=== PATIENT | female | born 1970 | race Caucasian/White ===

== ENCOUNTER → 2019-07-17 | Outpatient (CLI) | payer OTHER ==
[~2019-07-17] MED LIST: IBUP-1060 PO
--- NOTE | 2019-07-17 15:02 | PAIN ---
DATE OF SERVICE: 07/17/2019 INITIAL CONSULTATION FOR PAIN CLINIC CHIEF COMPLAINT: Low back and left lower extremity pain. HISTORY OF PRESENT ILLNESS: This is a 48-year-old female who presents with history of pain in the low back for about 3 months now, not a result of any specific injury or action that she is aware of. She was just exercising, doing some stretching and she bent over to pick something up in early March of this year, had significant pain in the low back, radiating to posterior gluteus, lateral thigh, lateral anterior thigh, anterior medial thigh, into the lateral knee and medial lower leg and anterior lower leg to the ankle. The patient reports it is a bit worse with standing or walking; sitting at work increases the pain. The patient works as a dental hygienist and is always turning to her right side and putting weight on her left side. Even with sitting, the pain is becoming significant and radiating into the lower extremity in a radicular fashion. The patient reports it is a constant, sharp, stabbing, throbbing, shooting with tingling pain; changes during the day with activity, radiating down the left leg as noted. The patient has had physical therapy as well as trigger point injections, also doing chiropractic treatment and currently doing home exercises and exercises at her gym, all with only minimal decrease in pain. The patient has tried gabapentin, tramadol, hydrocodone as well as the ibuprofen. The ibuprofen and hydrocodone do decrease the pain, but only by about 20%. Tramadol and gabapentin were not helpful. The patient reports it awakens her from her sleep at least twice at night. It can affect her bowel or bladder control, but no loss of continence and it does affect her ability to walk with easy fatigability in the left leg. The patient did have MRI scan of the lumbar spine, showing at the L4-L5 level significant left extraforaminal disk protrusion with left neural foraminal mass effect on the exiting left L4 nerve root. PAST MEDICAL HISTORY: Significant for only a previous laparoscopic cholecystectomy; otherwise, the patient has been in good health. CURRENT MEDICATIONS: Include ibuprofen only. ALLERGIES: THE PATIENT IS ALLERGIC TO PENICILLIN. FAMILY HISTORY: Significant for no known medical conditions or diseases as the patient was adopted. SOCIAL HISTORY: The patient drinks about 2-3 alcoholic drinks a week, does not smoke and does not use any illegal, illicit or recreational drugs. Single, lives locally in [place], [place] and works as a dental hygienist. REVIEW OF SYSTEMS: The patient's review of systems is positive for those items mentioned in the history of present illness. All systems reviewed and otherwise negative. It is complete, full and well documented on the patient's chart. PHYSICAL EXAMINATION: VITAL SIGNS: The patient's blood pressure is 142/66, pulse 71, respirations 18 and temperature is 98.5 degrees Fahrenheit. Height is 5 feet 9 inches, weight is 152 pounds. GENERAL: The patient is awake, alert, oriented, appropriate, very pleasant demeanor. HEENT: Exam shows normocephalic, atraumatic. Extraocular movements are intact and symmetrical. Oral cavity, mucous membranes are moist and pink. Dentition is intact. NECK: Shows anterior throat supple, without palpable lymphadenopathy noted. Swallow reflex is symmetrical. CHEST: Shows normal on inspection. Breath sounds are clear to auscultation bilaterally. HEART: Shows S1, S2 clear. No murmurs auscultated. ABDOMEN: Soft, nontender and nondistended. No palpable organomegaly is noted. No rebound or guarding demonstrated. BACK: Shows spine grossly in the midline. Normal-appearing thoracic kyphosis and lumbar lordotic curvature. Lumbar paraspinous muscle shows symmetrical on inspection. With palpation, it shows some moderate tenderness diffusely, but only diffusely without radiation. The patient has good rotational motion of the lumbar spine, both laterally as well as with extension and flexion, without significant difficulty. EXTREMITIES: The patient's lower extremities show deep tendon reflexes at 2+ in the patellar, 1+ tendo-calcaneus tendons are equal. Motor exam is strong, with 5/5 dorsiflexion, extension, quadriceps and hamstring flexion. Peripheral pulses are 1+ posterior tibia. No peripheral edema is noted. Lower extremities are warm and dry to touch, equal in color and appearance. Straight leg raise noted to be mildly positive on the left at about 40 degrees, but is decreased with knee flexion; right side is negative. Gaenslen's and Zack's maneuvers negative bilaterally as well. The patient is able to stand, stand on her toes without significant difficulty or loss of balance, is walking with a normal-appearing gait for a short distance in the office today, but not using any assistive devices such as canes or walkers to ambulate. SKIN: Shows warm and dry, good turgor. No edema. No sores, rashes or bruising throughout. IMPRESSION: 1. This is a 48-year-old female with approximately 3-month history of increasing pain in the low back and left lower extremity in a radicular fashion following L4-L5 dermatomal distribution. 2. MRI scan of the lumbar spine as noted. PLAN: Options were discussed with the patient including conservative medical managements, physical therapies and interventional techniques. She would like to pursue interventional techniques as she has done physical therapy. She is still doing exercises on her own, still with significant clinical radiculopathy in the left L4-L5 dermatomal distribution. We discussed the lumbar epidural steroid injection using description as well as anatomical models to describe the procedure. The patient will await for preauthorization with the insurance provider and will plan on return for lumbar epidural steroid injection at L4-L5 level at that time. JESSI HERNANDEZ MD DR: JAZMIN/trinidad JOB#: [id number] / [id number] TIMI Vasquez MD
== END | disposition home or self-care (01) ==
LOC: PNCL 08:25
PROVIDERS: ATTEND Anesthesiology
DX: M54.40 Lumbago with sciatica, unspecified side (principal); M79.605 Pain in left leg; Z88.0 Allergy status to penicillin; Z90.49 Acquired absence of other specified parts of digestive tract
CPT/HCPCS: G0463

== ENCOUNTER → 2019-07-31 | Outpatient (CLI) | payer OTHER ==
[~2019-07-31] MED LIST changes: +IOHEXOL 180 MG/ML 10 ML VIAL. ONE; +methylPREDNISolone ACETATE 40 MG/ML VIAL. ONE; +methylPREDNISolone ACETATE 80 MG/ML VIAL. ONE
--- NOTE | 2019-07-31 11:55 | PAIN ---
DATE OF SERVICE: 07/31/2019 PROGRESS NOTE FOR PAIN CLINIC DIAGNOSES: Lumbar radiculopathy with lumbar degenerative disk disease and lumbar herniated disk. HISTORY OF PRESENT ILLNESS: The patient, a 48-year-old female, returns status post evaluation and preauthorization for lumbar epidural steroid injection. The patient reports still significant pain in the low back, left lower extremity as it was previously, posterior lateral thigh, lateral anterior thigh, anterior medial thigh and medial lower leg into the ankle. The patient reports it is 9 on a scale of 10 at its worst over the past week, 7-8 on average, 3 at its least and is a 7 today. The patient reports it is aching, sharp, dull, tight, shooting, radiating, tingling, on and off in intensity, awakens her from sleep at night. The patient has obtained preauthorization with her insurance provider and would like to proceed with an epidural steroid injection today. The patient reports no new motor or sensory deficits, no new bowel or bladder incontinence or other complaints. PHYSICAL EXAMINATION: VITAL SIGNS: The patient's blood pressure is 134/94, pulse 83, temperature 98.6 degrees Fahrenheit, respirations 18, height is 5 feet 9 inches, weight is 159 pounds. GENERAL: The patient is awake, alert, oriented, appropriate, very pleasant demeanor. HEENT: Shows normocephalic, atraumatic. Extraocular movements are intact and symmetrical. Oral cavity: Mucous membranes are moist and pink. Dentition is intact. NECK: Shows anterior throat supple without palpable lymphadenopathy noted. Swallow reflex symmetrical. CHEST: Shows normal on inspection. Breath sounds clear to auscultation bilaterally. HEART: Shows S1, S2 clear. No murmurs auscultated. ABDOMEN: Soft, nontender, nondistended. No palpable organomegaly is noted. No rebound or guarding demonstrated. BACK: Shows spine grossly in the midline. Normal-appearing thoracic kyphosis and lumbar lordotic curvature. Lumbar paraspinous muscle shows symmetrical on inspection. With palpation, some moderate tenderness diffusely bilaterally, but only diffusely without specific radiation. EXTREMITIES: Lower extremities show deep tendon reflexes at 2+ in the patellar and 1+ tendo-calcaneus tendons. Motor exam is strong with 5/5 dorsiflexion, extension, quadriceps and hamstring flexion and symmetrical. Peripheral pulses are 1+ posterior tibia. No peripheral edema is noted. Options were discussed with the patient. The patient's old chart was reviewed as her current medication regimen updated. Current review of systems updated today as well. We will proceed with lumbar epidural steroid injection today with fluoroscopic guidance. Risks were again discussed, including but not limited to bleeding, infection, possibility of epidural hematoma, subsequent neurological compromise, dural puncture, headaches, spinal cord and/or nerve damage, side effects of steroid medication and poor results regarding pain control. The patient understands and wished to proceed. The patient will return to the clinic in approximately 2 weeks for followup. She was counseled on return appointment, activity level and side effects to be aware of. DIAGNOSES: Lumbar radiculopathy with lumbar degenerative disk disease with lumbar herniated disk. PROCEDURE: Lumbar epidural steroid injection, translaminar approach, L4-L5 level using C-arm fluoroscopic guidance under sterile prep and drape using local anesthetic. MEDICATION INJECTED: A total of 120 mg Depo-Medrol plus 10 mL of preservative-free normal saline and 2 mL of contrast. CONDITION AT DISCHARGE: Stable. The patient tolerated procedure well, had no complications. JESSI HERNANDEZ MD DR: JAZMIN/trinidad JOB#: [id number] / [id number]
== END ==
LOC: PNCL 08:10
PROVIDERS: ATTEND Anesthesiology
DX: M51.16 Intervertebral disc disorders with radiculopathy, lumbar region (principal)
CPT/HCPCS: 62323; J1030; J1040; Q9965

== ENCOUNTER → 2019-08-14 | Outpatient (CLI) | payer OTHER ==
[~2019-08-14] MED LIST changes: -IOHEXOL 180 MG/ML 10 ML VIAL. ONE; -methylPREDNISolone ACETATE 40 MG/ML VIAL. ONE; -methylPREDNISolone ACETATE 80 MG/ML VIAL. ONE
--- NOTE | 2019-08-14 09:13 | PAIN ---
DATE OF SERVICE: 08/14/2019 PROGRESS NOTE FOR PAIN CLINIC DIAGNOSES: Lumbar radiculopathy with lumbar degenerative disk disease and lumbar herniated disk. HISTORY OF PRESENT ILLNESS: The patient is a 48-year-old female who returns for followup status post lumbar epidural steroid injection x 1. The patient reports about 75% improvement initially for the first week, then started tapered off to about 50% overall improvement and still working. The patient reports she is still having some significant reduction in pain, but still the pain is becoming more noticeable each day with walking, standing, but primarily into the left lower extremity, posterior gluteus, posterolateral thigh, lateral anterior thigh, anterior medial thigh and occasionally into the medial lower leg, but mostly just staying in the thigh and the back. The patient reports still radiating, but she is walking with much greater ease and comfort. She is able to sit for longer periods of time, has been traveling with much easier tolerance and doing household activities with greater ease and comfort as well. The patient reports no new motor or sensory deficits, no new bowel or bladder incontinence. Rates her pain as a 6 on a scale of 10 at its worst over the past week, 4 on average 2 at its least and is a 4 today. The patient reports it is aching, dull and tingling in the low back and left lower extremity in a radicular fashion as previously following L4-L5 dermatomal distribution. PHYSICAL EXAMINATION: VITAL SIGNS: The patient's blood pressure 132/96, pulse 80, respirations 16, temperature 98.6 degrees Fahrenheit, height is 5 feet 8 inches and weight is 156 pounds. GENERAL: The patient is awake, alert, oriented, appropriate, very pleasant demeanor. HEENT: Shows normocephalic, atraumatic. Extraocular movements are intact and symmetrical. Oral cavity: Mucous membranes moist and pink. Dentition is intact. NECK: Shows anterior throat supple without palpable lymphadenopathy noted. Swallow reflex symmetrical. CHEST: Shows normal on inspection. Breath sounds are clear bilaterally. HEART: Shows S1, S2 clear. No murmurs auscultated. ABDOMEN: Soft, nontender, nondistended. No palpable organomegaly is noted. No rebound or guarding demonstrated. BACK: Shows spine grossly in the midline. Normal appearing thoracic kyphosis and minor flattening of lumbar lordotic curvature. Lumbar paraspinous muscle shows symmetrical on inspection. The patient's low back shows good rotational motion both laterally as well as extension and flexion without significant difficulty. EXTREMITIES: Lower extremities show deep tendon reflexes 2+/4 in the patellar tendons. Motor exam is 5/5 with dorsiflexion, extension and symmetrical. Peripheral pulses are 1+ posterior tibia. No peripheral edema is noted bilaterally. Straight leg raise noted to be mildly positive on the left, but only about 45 degrees, which is decreased with knee flexion. Right side is negative. Options were discussed with the patient. The patient's old chart was reviewed as her current medication regimen updated. Current review of systems updated today as well. We will preauthorize the patient for a second lumbar epidural steroid injection at L4-L5 level. The patient has persistent left L4-L5 lumbar radiculopathy, improved after first injection, but still present, but still some significant radiating radicular pain. We will plan for a translaminar L4-L5 level lumbar epidural steroid injection on her return. In the meantime, the patient will continue doing stretching and strengthening exercises that she is doing walking daily as tolerated and we encouraged her to continue this as well and we will have her follow up as scheduled. JESSI HERNANDEZ MD DR: JAZMIN/trinidad JOB#: [id number] / [id number]
== END | disposition home or self-care (01) ==
LOC: PNCL 08:15
PROVIDERS: ATTEND Anesthesiology
DX: M51.16 Intervertebral disc disorders with radiculopathy, lumbar region (principal)
CPT/HCPCS: G0463

== ENCOUNTER → 2019-09-07 | Outpatient (CLI) | payer OTHER ==
[~2019-09-07] MED LIST changes: +IOHEXOL 180 MG/ML 10 ML VIAL. ONE; +methylPREDNISolone ACETATE 40 MG/ML VIAL. ONE; +methylPREDNISolone ACETATE 80 MG/ML VIAL. ONE
--- NOTE | 2019-09-07 11:46 | PAIN ---
DATE OF SERVICE: 09/07/2019 PROGRESS NOTE FOR PAIN CLINIC DIAGNOSES: Lumbar radiculopathy with lumbar degenerative disk disease and lumbar herniated disk. HISTORY OF PRESENT ILLNESS: The patient is a 48-year-old female who returns for followup status post initial evaluation and lumbar epidural steroid injection x 1 with good about 50% improvement. The patient has been preauthorized for second injection and would like to proceed with that today. The patient reports still significant pain in low back, left lower extremity as it was previously, posterior gluteus, posterolateral thigh, lateral anterior thigh, and medial thigh, into the knee. The patient reports it is an 8 on a scale of 10 at its worst over the past week, 6 on average, 3 at its least and is a 3 today. The patient reports no new motor or sensory deficits, no new bowel or bladder incontinence or other complaints, but still significant pain with walking, standing, changing positions, but initially she was doing quite a bit better with work activities, home activities and household activities as well as traveling with greater ease and comfort. The patient reports she is moving to a new home, but has some maneuvers to help her with the heavy items later today and tomorrow. The patient reports otherwise no new changes. Sleeping well at night, does not awake her from sleep. The patient describes the pain as radiating, aching and dull across the low back and shooting into the left leg. PHYSICAL EXAMINATION: VITAL SIGNS: The patient's blood pressure is 139/93, pulse 74, respirations 16, temperature is 98.5 degrees Fahrenheit, height is 5 feet 9 inches, weight is 157 pounds. GENERAL: The patient is awake, alert, oriented, appropriate, very pleasant demeanor. HEENT: Shows normocephalic, atraumatic. Extraocular movements are intact and symmetrical. Oral cavity: Mucous membranes moist and pink. Dentition is intact. NECK: Shows anterior throat supple without palpable lymphadenopathy noted. Swallow reflex symmetrical. CHEST: Shows normal on inspection. Breath sounds clear to auscultation bilaterally. HEART: Shows S1, S2 clear. No murmurs auscultated. ABDOMEN: Soft, nontender, nondistended. No palpable organomegaly is noted. No rebound or guarding demonstrated. BACK: Shows spine grossly in the midline, normal appearing thoracic kyphosis and lumbar lordotic curvature. Lumbar paraspinous muscle shows symmetrical on inspection; with palpation shows some mild tenderness in the low lumbar distribution more on the left than the right, but it is symmetrical without evidence of atrophy, hypertrophy, and no trigger points. The patient shows good rotational motion of lumbar spine both laterally greater than 10 degrees right and left as well as extension greater than 10 degrees, forward flexion 45 degrees without difficulty or pain reported. EXTREMITIES: The patient's lower extremities show deep tendon reflexes 2+ in the patellar, 1+ tendo-calcaneus tendons. Motor exam is strong with 5/5 dorsiflexion, extension, quadriceps and hamstring flexion symmetrical. Peripheral pulses are 1+ posterior tibia. No peripheral edema bilaterally. Options were discussed with the patient. The patient's old chart was reviewed as her current medication regimen updated. Current review of systems updated today as well and we will proceed with a second lumbar epidural steroid injection today with fluoroscopic guidance. Risks were again discussed including, but not limited to bleeding, infection, possibility of epidural hematoma, subsequent neurological compromise, dural puncture, headaches, spinal cord and/or nerve damage, side effects of steroid medication and poor results regarding pain control. The patient understands and wished to proceed. The patient will return to clinic in approximately 2 weeks for followup. She was counseled as to return appointment, activity level and side effects to be aware of. DIAGNOSES: Lumbar radiculopathy with lumbar degenerative disk disease and lumbar herniated disk. PROCEDURES: Lumbar epidural steroid injection, translaminar approach at L4-L5 level using C-arm fluoroscopic guidance under sterile prep and drape using local anesthetic. MEDICATION INJECTED: A total of 120 mg of Depo-Medrol plus 10 mL of preservative-free normal saline and 2 mL of contrast. CONDITION AT DISCHARGE: Stable. The patient tolerated the procedure well, had no complications. JESSI HERNANDEZ MD DR: JAZMIN/trinidad JOB#: [id number] / [id number]
== END ==
LOC: PNCL 08:44
PROVIDERS: ATTEND Anesthesiology
DX: M51.16 Intervertebral disc disorders with radiculopathy, lumbar region (principal)
CPT/HCPCS: 62323; J1030; J1040; Q9965